=== PATIENT | female | born 1995 | race Caucasian/White ===

== ENCOUNTER 2018-04-14 13:02 | Emergency (ER) | payer OTHER, MEDICAID ==
[~2018-04-14] VITALS: Ht 175.3 cm; Wt 81.7 kg
[~2018-04-14 13:02] MED LIST: ADVAIR HFA 230M12 GM INH; ADVAIR HFA 45-218 GM; ALBUTEROL2.5 MG/31 INH; AMOXICILLIN 50500 M1 PO; CORTISPORIN OTI10 M2 OT; FLOVENT HFA 1110 MCG INH; FLOVENT HFA 2220 MC1; IBUPROFEN 600600 M1 PO; IBUPROFEN 800800 MG PO; KEFLEX500 M1 PO; LEVAQUIN 750 M750 MG PO; LIDOCAINE VISC100 M1 SWISH&SPIT; MACROBID 100 M100 M1 PO; MEDROLDOSEPACK PO; NORCO 5-325 TA1 EACH PO; POLYMYXIN B/TMP10 ML OPHTHALMIC; PREDNISONE 20 M20 M1 PO; PREDNISONE 20 M20 MG PO; PRENATA CHEWAB1 EACH; PRENATAL; PROVENTIL HFA6.7 G1 INH; SINGULAIR; SINGULAIR 10 MG10 M1 PO; VENTOLIN HFA INH8 GM IH; ZPAK PO; ZYRTEC
[2018-04-14 14:16] VITALS: BP 115/72
--- NOTE | 2018-04-15 10:21 | EKG ---
[place] [address] ELECTROCARDIOGRAM REPORT Name: ABHIJEET JEAN Room: [facility]#: [id number] Admission: 04/14/18 Attend Phys: Discharge: 04/14/18 Date of : [birth year] Report #: [id number] THIS REPORT FOR: //name// [facility] ED Test Date: 2018-04-14 Test Time: 13:08:37 Pat Name: ABHIJEET JEAN Department: Room: Gender: F Oxyacetylene Burner: LC : 1995 Requested By: Ned Bailey Order Number: [id number] MD: Pedro Dobson Measurements Intervals [place] Rate: 130 P: 80 SC: 149 QRS: 96 QRSD: 161 T: 19 QT: 292 QTc: 430 Interpretive Statements Sinus tachycardia Biatrial enlargement Artifact in lead(s) I,II,III,aVR,aVL,V2,V3,V4,V5,V6 Compared to ECG 03/13/2016 20:26:52 Left ventricular hypertrophy now present Early repolarization no longer present Electronically Signed On 04-15-2018 10:21:35 [employer] by Pedro Dobson [email or web address] <ELECTRONICALLY SIGNED> By: Pedro Dobson MD, FACC 04/15/18 1021 1308 1308 Pedro Dobson MD, FACC /EPI
== END 2018-04-14 14:19 | disposition home or self-care (01) ==
LOC: M.ERS 13:02
DX: J45.901 Unspecified asthma with (acute) exacerbation (principal); Z77.22 Contact with and (suspected) exposure to environmental tobacco smoke (acute) (chronic); Z91.040 Latex allergy status